=== PATIENT | male | born 1990 | race Caucasian/White ===

== ENCOUNTER 2024-12-30 13:10 | Emergency (ER) | payer OTHER, SELFPAY ==
[2024-12-30 13:11] VITALS: BP 170/107; PULSE 92; RESP 18; TEMP 36.6; O2SAT 97; BMI 33.4
--- NOTE | 2024-12-30 14:31 | EX.ED.GENINJ ---
HPI History of Present Illness Chief Complaint: Laceration Informant: patient Narrative Narrative: Patient is a 34-year-old male [id number] presenting a laceration to his left index finger. 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 He was cutting towards himself and excellently sliced ventral aspect of his left index finger. He states initially it was bleeding relatively profusely but he applied pressure and it stopped. He denies any associated numbness or tingling. [place] difficulty moving the finger but is concerned that if he bends it too much bleeding again. 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 No other complaints or concerns at this time Tetanus Immunization: <5 years PFSH PFS Allergy/AdvReac Type Severity Reaction Status Date / Time No Known Allergies Allergy Verified 12/30/24 13:13 Social History Smoking Status: Current every day smoker tobacco type: cigarettes ROS ROS ED Constitutional Constitutional ED: Denies chills or fever(s) Musculoskeletal Musculoskeletal: Reports other Details: Left index finger pain Integumentary Reports other Details: Laceration to the left index finger Neurologic Neurologic: Denies paresthesias or weakness Hematologic/Lymphatic Hematologic/Lymphatic: Denies easy bleeding or easy bruising EXAM Physical Exam Const Vital Signs: 12/30/24 13:11 12/30/24 15:30 Temperature 97.9 F 98.2 F Temperature Source Oral Pulse Rate 92 73 Respiratory Rate 18 16 Blood Pressure 170/107 H 137/85 H Blood Pressure Mean 128 102 Pulse Ox 97 98 Oxygen Delivery Method Room Air Positive well nourished and well developed General Appearance ED: well developed and NAD HEENT atraumatic Chest Wall inspection of chest normal Resp normal respiratory effort Cardio Cardio Narrative: 2+ radial pulses, brisk capillary refill present Extremity normal to inspection and full ROM Extremity Narrative: Normal flexion and extension of the right index finger. No obvious flexor tendon deficit. No bony deformity present. Neuro moves all extremities, no focal motor deficits and no sensory deficits noted Psych mental status grossly normal and thought process normal Skin Skin Narrative: 3 cm full-thickness laceration slightly curved on the ventral aspect of the second index finger over the second phalanges. No active bleeding at this time. Slightly flapped. PROC Procedures Lacerations finger: Length: 1.18 in Depth: Skin Shape: Linear Prep: Chlorhexadine Laceration repair: Digital block and Irrigated Irrigated (ml): 500 Suture Information: Ethilon, Simple (4), Horizontal (1) and 4-0 Comment: Patient did initially have some venous bleeding was controlled with direct pressure and suture. MDM MDM MDM Narrative Medical decision making narrative: Patient is evaluated for laceration to his left index finger. Initially bleeding that stopped however on laceration. He did have further bleeding. It did stop with laceration repair. And isolated range of motion patient has preserved flexion and extension of all phalanges. Laceration repair performed, see procedure note. Patient given wound care precautions. Will be returning to [place]. Counseled sutures should be removed in approximately 10 days. Given return precautions and signs and symptoms of wound infection. Discharged home in stable improved condition. Discharge Plan Triage Chief Complaint: Laceration ED Provider: Jyothi Diaz Dx/Rx/DC Orders Clinical Impression: Laceration of left index finger Instructions: ED Hand Laceration- All Closures Primary Care Provider: Care Physician,No Primary Activity Restrictions/Additional Instructions: Sutures should be removed in approximately 10 days. Follow-up with your family doctor or return the ER for this. Alternate ibuprofen Tyle as needed for pain. You do not require antibiotics at this time. Print Language: Maltese Disposition Disposition: Home, Self Care Discharge Date/Time: 12/30/24 16:15
[2024-12-30] MEDS: Lidocaine 1% (20 ml mdv) 20 ML Vial INFILT (14:40)
[2024-12-30 15:30] VITALS: BP 137/85; PULSE 73; RESP 16; TEMP 36.8; O2SAT 98
== END 2024-12-30 16:15 | disposition home or self-care (01) ==
PROVIDERS: Emergency Provider Emergency Medicine; Visit Provider Emergency Medicine
DX: S61.211A Laceration without foreign body of left index finger without damage to nail, initial encounter (principal); F17.210 Nicotine dependence, cigarettes, uncomplicated; W26.0XXA Contact with knife, initial encounter
CPT/HCPCS: 12002; 99283